=== PATIENT | female | born 2000 | race Caucasian/White ===

== ENCOUNTER 2022-01-28 14:52 | Emergency (ER) | payer BC ==
[~2022-01-28] VITALS: Ht 162.6 cm; Wt 62.0 kg
[2022-01-28 15:35] LABS: HEMATOCRIT 29.6 % (36.0-48.0); MEAN CORPUSCULAR HEMOGLOBIN 31.1 pg (28.0-32.0); MEAN CORPUSCULAR VOLUME 92.3 fL (81.0-99.0); PLATELET 543 x1000/uL (130-400); RED CELL DISTRIBUTION WIDTH 15.1 % (11.6-14.6)
[2022-01-28 16:20] VITALS: BP 110/59
== END 2022-01-28 17:10 | disposition home or self-care (01) ==
LOC: ER 15:04
DX: Z48.01 Encounter for change or removal of surgical wound dressing (principal); D64.9 Anemia, unspecified; Z98.890 Other specified postprocedural states
CPT/HCPCS: 36415; 71045; 85027; 99284